=== PATIENT | male | born 1980 | race Caucasian/White ===

== ENCOUNTER 2017-03-10 10:21 | Outpatient (RCR) | payer OTHER ==
[2017-03-11 07:09] LABS: HOMOCYSTEINE 11.9 umol/L (<=10.3)
[2017-03-12 07:32] LABS: FACTOR II 20210 MUTATION INT SEE FOOTNOTE
== END 2017-06-08 | disposition home or self-care (01) ==
LOC: ONC 10:21
PROVIDERS: ATTEND Internal Medicine Hematology & Oncology
DX: I82.402 Acute embolism and thrombosis of unspecified deep veins of left lower extremity (principal); Z79.01 Long term (current) use of anticoagulants
CPT/HCPCS: 36415; 81240; 83090; 99214

== ENCOUNTER 2017-06-09 10:44 | Outpatient (RCR) | payer OTHER | END 2017-07-30 | disposition home or self-care (01) | LOC: ONC 10:44 | PROVIDERS: ATTEND Internal Medicine Hematology & Oncology | DX: I82.402 Acute embolism and thrombosis of unspecified deep veins of left lower extremity (principal); Z79.01 Long term (current) use of anticoagulants | CPT/HCPCS: 99213 ==